=== PATIENT | female | born 1930 | race Caucasian/White ===

== ENCOUNTER 2017-06-12 10:02 | Inpatient (IN) | payer MEDICARE, OTHER ==
[~2017-06-12] VITALS: Ht 149.9 cm; Wt 83.4 kg
[2017-06-12 12:53] LABS: White Blood Cell 7.3 10^3/uL (4.4-10.8)
[2017-06-12 12:54] LABS: Basophils # (auto) 0 uL; Basophils % (auto) 0.4 % (0.0-2.0); Eosinophils # (auto) 0.3 uL; Eosinophils % (auto) 3.6 % (0.0-7.0); Lymphocytes # (auto) 1.8 uL; Monocytes # (auto) 0.5 uL; Monocytes % (auto) 7.2 % (0.0-12.0); Neutrophils # (auto) 4.7 uL
[2017-06-12 12:55] LABS: Hematocrit 40.3 % (36.0-46.0); Hemoglobin 13.3 g/dL (12.2-16.2); Mean Corpuscular Hemoglobin 29.5 pg (28.0-32.0); Mean Corpuscular Hgb Conc. 33.1 g/dL (32.0-36.0); Mean Corpuscular Volume 89.2 fL (80.0-100.0); Mean Platelet Volume 6.9 fL (6.9-10.8); Platelet Count (auto) 259 10^3/uL (140-450)
[2017-06-12 13:03] LABS: Anion Gap 5 (5-15); BUN/Creatinine Ratio 11.4; Blood Urea Nitrogen 10 mg/dL (7-18); Carbon Dioxide 29 mmol/L (21-32); Chloride 105 mmol/L (98-107); GFR African American 78 mL/min; GFR Non-African American 65 mL/min; Glucose 97 mg/dL (74-106); Sodium 139 mmol/L (136-145)
[2017-06-12 13:04] LABS: Albumin 3.3 g/dL (3.4-5.0); Alkaline Phosphatase 112 U/L (45-117); Aspartate Aminotransferase 18 U/L (15-37); Bilirubin, Total 0.5 mg/dL (0.2-1.0); Calcium 8.6 mg/dL (8.5-10.1); Magnesium 2.5 mg/dL (1.6-2.6); Total Protein 6.8 g/dL (6.4-8.2)
[2017-06-12 15:14] LABS: Urine Bilirubin Negative (Negative); Urine Blood Negative /uL (Negative); Urine Color Yellow (Yellow); Urine Glucose Normal (Normal); Urine Ketone Negative (Negative); Urine Nitrite Negative (Negative); Urine RBC None Seen /hpf (0 - 4); Urine Squamous Epithelial Cell FEW /hpf (<5); Urine Urobilinogen Normal (Negative); Urine pH 6.5 (5.0-8.0)
[2017-06-12] MEDS ORDERED: NITROGLYCERIN 0.4 MG SL TAB SL PRN (18:45)
[2017-06-12] MEDS ORDERED: LORazepam 0.5 MG TAB PO PRN (18:45)
[2017-06-12] MEDS ORDERED: PROMETHAZINE HCL 25 MG/ML 1ML IV PRN (18:45)
[2017-06-12] MEDS ORDERED: LACTULOSE 20Gm/30ML SOLN PO PRN (18:45)
[2017-06-12] MEDS ORDERED: MORPHINE SULF INJ 2 MG/ML SYRINGE 1ML IV PRN ×2 (18:45)
[2017-06-12] MEDS ORDERED: ALBUTEROL SULF 2.5 MG/0.5ML(0.5%) NEB SOLN NEB PRN (18:45)
[2017-06-12] MEDS ORDERED: ASPirin 81 mg TAB PO ONE (19:15)
[2017-06-12] MEDS: SODIUM CHLORIDE 0.9% 1,000 ML IV SCH (19:56)
[2017-06-12] MEDS ORDERED: ENOXAPARIN SOD 40 MG/0.4 ML SYRINGE SC SCH (20:00)
[2017-06-12 20:20] VITALS: BP 151/80
[2017-06-12 21:02] LABS: Temperature: 21.6 C (20.0-25.0)
[2017-06-12 21:37] VITALS: BP 127/73
[2017-06-12 22:00] VITALS: BP 151/80
[2017-06-12] MEDS: ACETAMINOPHEN 500 MG TAB PO PRN (22:51)
[2017-06-12] MEDS: TEMAZEPAM 15 MG CAP PO PRN (23:13)
[2017-06-13 05:00] VITALS: BP 157/68
[2017-06-13 08:00] VITALS: BP 172/70
[2017-06-13] MEDS: ACETAMINOPHEN 500 MG TAB PO PRN ×2 (09:27→21:15)
[2017-06-13 09:38] VITALS: BP 172/70
[2017-06-13] MEDS ORDERED: IOHEXOL 350 MG/ML 100ML IJ ONE (10:13)
[2017-06-13] MEDS: ENOXAPARIN SOD 80 MG/0.8ML SYRINGE SC SCH ×2 (11:37→23:07)
[2017-06-13] MEDS: ASPirin 81 mg TAB PO SCH (11:38)
[2017-06-13 14:13] LABS: INR 0.99 (0.9-1.15); Partial Thromboplastin Time 30.3 sec (22.64-33.71); Prothrombin Time 10.8 sec (9.37-12.3)
[2017-06-13] MEDS: HYDROcodone-ACET 5/325MG TAB PO PRN ×2 (14:20→21:07)
[2017-06-13] MEDS ORDERED: WARFARIN SODIUM 2.5 MG TAB PO ONE (17:00)
[2017-06-13 17:48] VITALS: BP 136/71
[2017-06-13] MEDS: SODIUM CHLORIDE 0.9% 1,000 ML IV SCH (19:43)
[2017-06-13 21:45] VITALS: BP 120/52
[2017-06-13] MEDS ORDERED: diphenhdrAMINE HCL 50 MG/1 ML VL IV ONE (22:30)
[2017-06-14] MEDS ORDERED: MONT5CHW17 PO (03:21)
[2017-06-14] MEDS ORDERED: HYDR-4663 PO (03:37)
[2017-06-14] MEDS ORDERED: ACET-1156 PO (03:37)
[2017-06-14] MEDS ORDERED: LEVO112T35 PO (03:37)
[2017-06-14] MEDS ORDERED: CELE100C82 PO (03:37)
[2017-06-14] MEDS ORDERED: DICY10CA55 PO (03:37)
[2017-06-14] MEDS ORDERED: CYCL5TAB PO (03:37)
[2017-06-14] MEDS ORDERED: DOCU-94 PO (03:37)
[2017-06-14 04:30] VITALS: BP 138/55
[2017-06-14 06:16] LABS: Basophils # (auto) 0 uL; Basophils % (auto) 0.6 % (0.0-2.0); Eosinophils # (auto) 0.3 uL; Eosinophils % (auto) 6.4 % (0.0-7.0); Hematocrit 35.9 % (36.0-46.0); Hemoglobin 12.1 g/dL (12.2-16.2); Lymphocytes # (auto) 2.1 uL; Lymphocytes % (auto) 40.2 % (10.0-50.0); Mean Corpuscular Hemoglobin 29.9 pg (28.0-32.0); Mean Corpuscular Hgb Conc. 33.6 g/dL (32.0-36.0); Monocytes # (auto) 0.4 uL; Monocytes % (auto) 8.1 % (0.0-12.0); Neutrophils # (auto) 2.3 uL; Neutrophils % (auto) 44.7 % (37.0-80.0); Platelet Count (auto) 204 10^3/uL (140-450); Red Cell Distribution Width 15.1 % (11.8-14.3); White Blood Cell 5.2 10^3/uL (4.4-10.8)
[2017-06-14 06:25] LABS: INR 0.99 (0.9-1.15); Prothrombin Time 10.8 sec (9.37-12.3)
[2017-06-14] MEDS ORDERED: METO50TA7 PO (07:16)
[2017-06-14] MEDS ORDERED: FLUO-125 PO (07:16)
[2017-06-14] MEDS ORDERED: PHEN95TA17 OR (07:19)
[2017-06-14] MEDS: SODIUM CHLORIDE 0.9% 1,000 ML IV SCH ×2 (08:13→20:43)
[2017-06-14] MEDS ORDERED: ALBUTEROL SULF 2.5 MG/0.5ML(0.5%) NEB SOLN NEB PRN (08:30)
[2017-06-14 09:00] VITALS: BP 125/79
[2017-06-14] MEDS ORDERED: cefTRIAXone 1GM/50ML D5W 50 ML IV ONE (09:45)
[2017-06-14] MEDS: ENOXAPARIN SOD 80 MG/0.8ML SYRINGE SC SCH ×2 (09:46→22:29)
[2017-06-14] MEDS: ASPirin 81 mg TAB PO SCH (10:00)
[2017-06-14] MEDS ORDERED: LEVOFLOXACIN 500MG 100 ML IV SCH (10:00)
[2017-06-14] MEDS: ALBUTEROL SULF 2.5 MG/0.5ML(0.5%) NEB SOLN NEB SCH ×2 (11:52→19:37)
[2017-06-14 13:00] VITALS: BP 125/79
[2017-06-14] MEDS ORDERED: WARFARIN SODIUM 2.5 MG TAB PO ONE (17:00)
[2017-06-14 17:29] VITALS: BP 145/77
[2017-06-14] MEDS: ACETAMINOPHEN 500 MG TAB PO PRN (17:41)
[2017-06-14 22:00] VITALS: BP 145/74
[2017-06-15] MEDS: TEMAZEPAM 15 MG CAP PO PRN ×2 (00:47→22:44)
[2017-06-15] MEDS: ALBUTEROL SULF 2.5 MG/0.5ML(0.5%) NEB SOLN NEB SCH ×4 (01:22→20:00)
[2017-06-15 05:11] VITALS: BP 153/72
[2017-06-15 07:13] LABS: INR 0.99 (0.9-1.15); Prothrombin Time 10.8 sec (9.37-12.3)
[2017-06-15 07:41] VITALS: BP 153/73
[2017-06-15] MEDS ORDERED: cefTRIAXone 1GM/50ML D5W 50 ML IV SCH (09:00)
[2017-06-15] MEDS: SODIUM CHLORIDE 0.9% 1,000 ML IV SCH ×2 (09:13→21:43)
[2017-06-15] MEDS: ENOXAPARIN SOD 80 MG/0.8ML SYRINGE SC SCH ×2 (09:35→22:00)
[2017-06-15] MEDS: ASPirin 81 mg TAB PO SCH (09:35)
[2017-06-15] MEDS: ACETAMINOPHEN 500 MG TAB PO PRN ×2 (09:40→22:44)
[2017-06-15 11:58] VITALS: BP 137/71
[2017-06-15] MEDS: HYDROcodone-ACET 5/325MG TAB PO PRN (13:37)
[2017-06-15] MEDS ORDERED: LEVOTHYROXINE SODIUM 25 MCG TAB PO ONE (15:00)
[2017-06-15 16:51] VITALS: BP 146/74
[2017-06-15] MEDS ORDERED: WARFARIN SODIUM 10 MG TAB PO ONE (17:00)
[2017-06-15] MEDS ORDERED: MONTELUKAST SODIUM 10 MG TAB PO ONE (17:00)
[2017-06-15 21:16] VITALS: BP 130/66
[2017-06-15] MEDS: DOCUSATE SOD 100 MG CAP PO SCH (22:44)
[2017-06-16] VITALS (7 sets, daily range): BP systolic 130–185; BP diastolic 57–92
[2017-06-16] MEDS: ALBUTEROL SULF 2.5 MG/0.5ML(0.5%) NEB SOLN NEB SCH ×4 (00:49→19:52)
[2017-06-16 06:32] LABS: INR 1.19 (0.9-1.15)
[2017-06-16] MEDS: LEVOTHYROXINE SODIUM 25 MCG TAB PO SCH (06:32)
[2017-06-16 06:37] LABS: Calcium 9.3 mg/dL (8.5-10.1); Potassium 4.6 mmol/L (3.5-5.1)
[2017-06-16 06:39] LABS: BUN/Creatinine Ratio 19.3
[2017-06-16] MEDS: DOCUSATE SOD 100 MG CAP PO SCH ×2 (09:52→21:12)
[2017-06-16] MEDS: ENOXAPARIN SOD 80 MG/0.8ML SYRINGE SC SCH ×2 (09:53→21:13)
[2017-06-16] MEDS: ACETAMINOPHEN 500 MG TAB PO PRN ×2 (09:53→21:48)
[2017-06-16] MEDS: ASPirin 81 mg TAB PO SCH (09:53)
[2017-06-16] MEDS: TEMAZEPAM 15 MG CAP PO PRN (21:48)
[2017-06-16] MEDS: MONTELUKAST SODIUM 10 MG TAB PO SCH (21:48)
[2017-06-17] VITALS (7 sets, daily range): BP systolic 132–156; BP diastolic 64–80
[2017-06-17] MEDS: ALBUTEROL SULF 2.5 MG/0.5ML(0.5%) NEB SOLN NEB SCH ×2 (00:35→06:50)
[2017-06-17] MEDS: LEVOTHYROXINE SODIUM 25 MCG TAB PO SCH (06:20)
[2017-06-17] MEDS: DOCUSATE SOD 100 MG CAP PO SCH ×2 (10:00→22:10)
[2017-06-17] MEDS: ENOXAPARIN SOD 80 MG/0.8ML SYRINGE SC SCH ×2 (10:00→22:10)
[2017-06-17] MEDS: ASPirin 81 mg TAB PO SCH (10:00)
[2017-06-17] MEDS: HYDROcodone-ACET 5/325MG TAB PO PRN ×2 (10:46→22:11)
[2017-06-17] MEDS: diphenhdrAMINE HCL 50 MG/1 ML VL IV PRN (10:46)
[2017-06-17] MEDS ORDERED: LIDOCAINE 2%HCL (LOCAL ANESTH.) INJ 20ML MDV ONE (12:59)
[2017-06-17] MEDS ORDERED: ceFAZolin 1GM/50ML D5W 50 ML IV ONE ×2 (13:16→13:30)
[2017-06-17] MEDS ORDERED: VANCOMYCIN HCL 1000 MG VL ONE (13:17)
[2017-06-17] MEDS ORDERED: MIDAZOLAM HCL 1MG/1ML-2 ML VIAL ONE (13:24)
[2017-06-17] MEDS ORDERED: fentaNYL CITRATE 100 MCG/2 ML VL ONE (13:24)
[2017-06-17] MEDS ORDERED: SODIUM CHLORIDE 0.9 % NEB SOLN 3ML NEB ONE (13:25)
[2017-06-17] MEDS ORDERED: VANCOMYCIN HCL 1000 MG VL IR ONE (13:30)
[2017-06-17] MEDS ORDERED: VANCOMYCIN 1GM/250ML D5W 250 ML IV ONE (13:30)
[2017-06-17] MEDS ORDERED: IOHEXOL 350 MG/ML 100ML IJ ONE (13:48)
[2017-06-17] MEDS ORDERED: phytonadione 1 ML ONE (13:56)
[2017-06-17] MEDS ORDERED: PHYTONADIONE (VIT K)10 MG/ML 1ML VIAL SUBCUT ONE (14:00)
[2017-06-17] MEDS ORDERED: HYDROmorphone HCL 2 MG/ML VL ONE (14:37)
[2017-06-17] MEDS ORDERED: HYDROcodone-ACET 5/325MG TAB PO PRN (14:45)
[2017-06-17] MEDS ORDERED: LORazepam 0.5 MG TAB PO PRN (14:45)
[2017-06-17] MEDS ORDERED: ACETAMINOPHEN 325 MG TAB PO PRN (14:45)
[2017-06-17] MEDS: MONTELUKAST SODIUM 10 MG TAB PO SCH (22:10)
[2017-06-17] MEDS: TEMAZEPAM 15 MG CAP PO PRN (22:11)
[2017-06-18] MEDS: VANCOMYCIN 1GM/250ML D5W 250 ML IV SCH ×2 (02:58→10:00)
[2017-06-18] MEDS: diphenhdrAMINE HCL 50 MG/1 ML VL IV PRN (03:58)
[2017-06-18 05:00] VITALS: BP 118/53
[2017-06-18] MEDS: LEVOTHYROXINE SODIUM 25 MCG TAB PO SCH (06:01)
[2017-06-18] MEDS: HYDROcodone-ACET 5/325MG TAB PO PRN (07:39)
[2017-06-18] MEDS ORDERED: HYDROcodone-ACET 10/325MG TAB PO PRN (08:45)
[2017-06-18 09:35] VITALS: BP 130/82
[2017-06-18] MEDS: ENOXAPARIN SOD 80 MG/0.8ML SYRINGE SC SCH (10:00)
[2017-06-18] MEDS: DOCUSATE SOD 100 MG CAP PO SCH (10:00)
[2017-06-18] MEDS: ASPirin 81 mg TAB PO SCH (10:00)
[2017-06-18 13:00] VITALS: BP 126/79
== END 2017-06-18 15:45 | disposition home health service (06) | DRG 243 ==
LOC: EDUNIT# 10:02 → EDBD 10:02 → ER 10:02 → TELE 10:03 → TELE-CENTR 20:20
PROVIDERS: ADMIT Internal Medicine; ATTEND Internal Medicine
PROC: 0JH606Z Insertion of Pacemaker, Dual Chamber into Chest Subcutaneous Tissue and Fascia, Open Approach (ICD-10-PCS; principal; 2017-06-17)
PROC: 02H63JZ Insertion of Pacemaker Lead into Right Atrium, Percutaneous Approach (ICD-10-PCS; 2017-06-17)
PROC: 02HK3JZ Insertion of Pacemaker Lead into Right Ventricle, Percutaneous Approach (ICD-10-PCS; 2017-06-17)
DX: I49.5 Sick sinus syndrome (principal); I82.412 Acute embolism and thrombosis of left femoral vein; I11.0 Hypertensive heart disease with heart failure; I50.9 Heart failure, unspecified; J44.9 Chronic obstructive pulmonary disease, unspecified; W18.39XA Other fall on same level, initial encounter; S00.03XA Contusion of scalp, initial encounter; M10.9 Gout, unspecified; K58.9 Irritable bowel syndrome, unspecified; Z96.652 Presence of left artificial knee joint; E03.9 Hypothyroidism, unspecified; M19.90 Unspecified osteoarthritis, unspecified site; R07.81 Pleurodynia; K57.30 Diverticulosis of large intestine without perforation or abscess without bleeding; S05.12XA Contusion of eyeball and orbital tissues, left eye, initial encounter; Y93.89 Activity, other specified; Y92.89 Other specified places as the place of occurrence of the external cause; Y99.8 Other external cause status; Z88.2 Allergy status to sulfonamides; Z90.710 Acquired absence of both cervix and uterus; Z90.49 Acquired absence of other specified parts of digestive tract
CPT/HCPCS: 36415; 70450; 71010; 71101; 71250; 71275; 80048; 80053; 81001; 82550; 82607; 82746; 83735; 84439; 84443; 84481; 84484; 85025; 85379; 85610; 85652; 85730; 86141; 86850; 86900; 86901; 87086; 87205; 93005; 93306; 93886; 93970; 94640; 94761; 96360; 99152; 99153; C1785; J0690; J0696; J2250; J3430

== ENCOUNTER → 2017-09-11 | Outpatient (CLI) | payer MEDICARE, OTHER ==
[~2017-09-11] MED LIST: ACET-1156 PO; APIX5TAB PO; CLON0.1T PO; CYANOCOBALAMIN (B-12) 1000 MCG/1 ML VIAL IM ONE; CYANOCOBALAMIN (B-12) 1000 MCG/1 ML VIAL ONE; CYCL7.5T15 PO; DICY10CA55 PO; FLUO20CA90 PO; FURO20TA PO; FUROSEMIDE 100 MG/10ML VIAL IV ONE; FUROSEMIDE 40 MG/4 ML VIAL ONE; LEVO112T35 PO; MAGNESIUM OXIDE 400 MG TAB ONE; MAGNESIUM OXIDE 400 MG TAB PO ONE; MONT5CHW17 PO; POLY33504 PO; POTASSIUM CHL 10 Meq TABLET PO ONE; POTASSIUM CHL 20 Meq TABLET PO ONE
[2017-09-11 14:10] VITALS: BP 166/78
[2017-09-11 16:18] LABS: BUN/Creatinine Ratio 18.8; Calcium 8.6 mg/dL (8.5-10.1); Magnesium 2.6 mg/dL (1.6-2.6); Potassium 4.2 mmol/L (3.5-5.1)
== END | disposition home or self-care (01) ==
LOC: Rad HDHVI 10:37
PROVIDERS: ATTEND Internal Medicine Cardiovascular Disease
DX: I10 Essential (primary) hypertension (principal); E55.9 Vitamin D deficiency, unspecified
CPT/HCPCS: 36415; 80048; 82306; 83735; 93306; 96372; 96374; G0463; J1940; J3420

== ENCOUNTER → 2017-11-04 | Outpatient (CLI) | payer MEDICARE ==
[~2017-11-04] MED LIST changes: -CYANOCOBALAMIN (B-12) 1000 MCG/1 ML VIAL IM ONE; -CYANOCOBALAMIN (B-12) 1000 MCG/1 ML VIAL ONE; -FUROSEMIDE 100 MG/10ML VIAL IV ONE; -FUROSEMIDE 40 MG/4 ML VIAL ONE; -MAGNESIUM OXIDE 400 MG TAB ONE; -MAGNESIUM OXIDE 400 MG TAB PO ONE; -POTASSIUM CHL 10 Meq TABLET PO ONE; -POTASSIUM CHL 20 Meq TABLET PO ONE
[2017-11-04 13:25] LABS: Basophils # (auto) 0 uL; Basophils % (auto) 0.6 % (0.0-2.0); Eosinophils # (auto) 0.2 uL; Eosinophils % (auto) 2.8 % (0.0-7.0); Hematocrit 38.4 % (36.0-46.0); Hemoglobin 12.7 g/dL (12.2-16.2); Lymphocytes # (auto) 2.3 uL; Lymphocytes % (auto) 30.6 % (10.0-50.0); Mean Corpuscular Hemoglobin 28.7 pg (28.0-32.0); Monocytes # (auto) 0.6 uL; Monocytes % (auto) 7.3 % (0.0-12.0); Neutrophils # (auto) 4.4 uL; Neutrophils % (auto) 58.7 % (37.0-80.0); Platelet Count (auto) 273 10^3/uL (140-450); Red Blood Cells 4.42 10^6/uL (4.0-5.20); Red Cell Distribution Width 15.2 % (11.8-14.3); White Blood Cell 7.6 10^3/uL (4.4-10.8)
[2017-11-04 13:48] LABS: Alanine Aminotransferase 13 U/L (13-56); Albumin 3.4 g/dL (3.4-5.0); Alkaline Phosphatase 90 U/L (45-117); Anion Gap 8 (5-15); Aspartate Aminotransferase 11 U/L (15-37); Bilirubin, Total 0.5 mg/dL (0.2-1.0); Blood Urea Nitrogen 19 mg/dL (7-18); Calcium 9.2 mg/dL (8.5-10.1); Carbon Dioxide 26 mmol/L (21-32); Chloride 105 mmol/L (98-107); GFR African American 59 mL/min; GFR Non-African American 49 mL/min; Glucose 137 mg/dL (74-106); Potassium 4.2 mmol/L (3.5-5.1); Sodium 139 mmol/L (136-145); Total Protein 6.9 g/dL (6.4-8.2)
== END | disposition home or self-care (01) ==
LOC: LAB 12:43
PROVIDERS: ATTEND Internal Medicine
DX: I10 Essential (primary) hypertension (principal); I20.8 Other forms of angina pectoris; M25.50 Pain in unspecified joint
CPT/HCPCS: 36415; 80053; 84484; 85025

== ENCOUNTER → 2019-03-11 | Outpatient (CLI) | payer MEDICARE ==
[~2019-03-11] MED LIST changes: +FURO1TAB33 PO; -FURO20TA PO; +FUROSEMIDE 100 MG/10ML VIAL IV ONE; +FUROSEMIDE 40 MG/4 ML VIAL ONE; +POTASSIUM CHL 10 Meq TABLET PO ONE; +POTASSIUM EFFERVESENT TAB 25 MEQ ONE; +POTASSIUM EFFERVESENT TAB 25 MEQ PO ONE
[2019-03-11 11:30] VITALS: BP 130/90
--- NOTE | 2019-03-11 12:54 | NUR ---
[facility] Discharge Instructions See e-MAR for any mediations given with this visit. Patient education given on disease process. Patient verbalized understanding. Previous labs reviewed. Patient discharged in stable condition with after care instructions and follow up appointment. NOTE LASIX IVP ADMIN BY TORO DORMAN POTASSIUM PO ADMIN BY TORO DORMAN
== END | disposition home or self-care (01) ==
LOC: CHF HDHVI 11:40
PROVIDERS: ATTEND Internal Medicine Cardiovascular Disease
DX: E87.70 Fluid overload, unspecified (principal); I13.0 Hypertensive heart and chronic kidney disease with heart failure and stage 1 through stage 4 chronic kidney disease, or unspecified chronic kidney disease; E11.22 Type 2 diabetes mellitus with diabetic chronic kidney disease; I50.32 Chronic diastolic (congestive) heart failure; N18.3 Chronic kidney disease, stage 3 (moderate); F41.9 Anxiety disorder, unspecified; I25.10 Atherosclerotic heart disease of native coronary artery without angina pectoris; J44.9 Chronic obstructive pulmonary disease, unspecified; E03.9 Hypothyroidism, unspecified; E66.9 Obesity, unspecified; I48.0 Paroxysmal atrial fibrillation; K21.9 Gastro-esophageal reflux disease without esophagitis; F32.9 Major depressive disorder, single episode, unspecified; M19.90 Unspecified osteoarthritis, unspecified site; Z90.710 Acquired absence of both cervix and uterus; Z90.49 Acquired absence of other specified parts of digestive tract; Z90.722 Acquired absence of ovaries, bilateral; Z79.899 Other long term (current) drug therapy; Z68.37 Body mass index [BMI] 37.0-37.9, adult; Z86.718 Personal history of other venous thrombosis and embolism; Z95.0 Presence of cardiac pacemaker; Z79.01 Long term (current) use of anticoagulants
CPT/HCPCS: 96374; G0463; J1940

== ENCOUNTER → 2019-03-30 | Outpatient (CLI) | payer MEDICARE ==
[~2019-03-30] MED LIST changes: -FUROSEMIDE 100 MG/10ML VIAL IV ONE; -FUROSEMIDE 40 MG/4 ML VIAL ONE; -POTASSIUM CHL 10 Meq TABLET PO ONE; -POTASSIUM EFFERVESENT TAB 25 MEQ ONE; -POTASSIUM EFFERVESENT TAB 25 MEQ PO ONE
== END | disposition home or self-care (01) ==
LOC: Rad HDHVI 12:58
PROVIDERS: ATTEND Internal Medicine Cardiovascular Disease
DX: I11.0 Hypertensive heart disease with heart failure (principal); I50.33 Acute on chronic diastolic (congestive) heart failure; I70.0 Atherosclerosis of aorta; M46.06 Spinal enthesopathy, lumbar region; I73.9 Peripheral vascular disease, unspecified
CPT/HCPCS: 93306; 93926; 93970